=== PATIENT | male | born 1960 | race Caucasian/White ===

== ENCOUNTER 2017-06-14 18:45 | Emergency (ER) | payer OTHER ==
[~2017-06-14] VITALS: Ht 162.6 cm; Wt 86.2 kg
[~2017-06-14 18:45] MED LIST: ALPR1TAB2 PO; LISI-410 PO
[2017-06-14 18:52] VITALS: BP 133/72
--- NOTE | 2017-06-14 19:10 | PCM.EKG ---
[facility] Test Date: 2017-06-14 Test Time: 19:07:32 Pat Name: AIDAN RUSSELL Department: Room: Gender: M Linux Network Engineer: SHARAD : 1960 Requested By: MAXIME KRUSE Order Number: [id number] Reading MD: Measurements Intervals [place] Rate: 77 P: 59 IL: 182 QRS: 65 QRSD: 104 T: 56 QT: 368 QTc: 416 Interpretive Statements Normal sinus rhythm Normal ECG No previous ECG available for comparison Please click the below link to view image of tracing.
--- NOTE | 2017-06-14 19:24 | ER.PDOC ---
General Chief Complaint: General Complaint Stated Complaint: SIDE TINGLING Time seen by MD: 19:22 Source: patient, family Exam Limitations: no limitations History of Present Illness Initial Comments 56 year old white male with hypertension comes in with tingling sensation, left side of the face and body. On and off for the last two days with no history of trauma. Ambulates without difficulty Timing/Duration: other (2 days) Altered Sensation: LUE, LLE, (L) facial Decreased Ability to Stand: walks w/o assistance Usually: orientedx3 Allergies: Coded Allergies: No Known Allergies (Unverified , 05/29/14) Home Meds Reported Medications Alprazolam (XANAX) 1 Mg Tablet, 1 MG PO BID Y for ANXIETY, TABLET 05/29/14 Lisinopril (LISINOPRIL) 20 Mg Tablet, 20 MG PO DAILY, TABLET 05/29/14 Past Medical History Medical History: hypertension Surgical History: no surgical history Social History Smoking: greater than 1 pack/day Alcohol Use: none Drug Use: none Review of Systems Constitutional: denies no symptoms reported, denies see HPI, denies chills, denies diaphoresis, denies fever, denies malaise, denies weakness, denies other Eyes: denies no symptoms reported, denies see HPI, denies blindness, denies blurred vision, denies drainage, denies decreased acuity, denies foreign body sensation, denies inflammation, denies pain, denies photophobia, denies previous injury, denies shadows, denies tunnel vision, denies vision change, denies contact lenses, denies glasses, denies other Ears, Nose, Mouth, Throat: denies no symptoms reported, denies see HPI, denies ear pain, denies ear discharge, denies nose pain, denies nose discharge, denies epistaxis, denies mouth pain, denies mouth swelling, denies loose teeth, denies throat pain, denies throat swelling Respiratory: denies no symptoms reported, denies see HPI, denies cough, denies orthopnea, denies shortness of breath, denies stridor, denies wheezing, denies other Cardiovascular: denies no symptoms reported, denies see HPI, denies chest pain , denies edema, denies palpitations, denies syncope, denies other Gastrointestinal: denies no symptoms reported, denies see HPI, denies abdominal pain, denies constipation, denies diarrhea, denies nausea, denies vomiting, denies other Genitourinary: denies no symptoms reported, denies see HPI, denies discharge, denies dysuria, denies frequency, denies hematuria, denies pain, denies other Musculoskeletal: denies no symptoms reported, denies see HPI, denies back pain , denies gout, denies joint pain, denies joint swelling, muscle pain (chronic left leg pain), denies muscle stiffness, denies neck pain, denies other Skin: denies no symptoms reported, denies see HPI, denies change in color, denies change in hair/nails, denies dryness, denies lesions, denies lumps, denies rash, denies other Psychiatric/Neurological: see HPI Endocrine: denies no symptoms reported, denies see HPI, denies excessive sweating, denies flushing, denies intolerance to cold, denies intolerance to heat, denies increased hunger, denies increased thrist, denies increased urine, denies unexplained weight gain, denies unexplaned weight loss, denies other Hematologic/Lymphatic: denies no symptoms reported, denies see HPI, denies anemia, denies blood clots, denies easy bleeding, denies easy bruising, denies swollen glands, denies other Physical Exam General Appearance: alert, no distress HEENT: no apparent trauma, EOM's intact, no nystagmus, PERRL, ENT inspection nml, pharynx nml, airway intact, oral exam nml Neuro/Psych: oriented x3, nml speech/cognition, nml mood/affect Cranial Nerves: nml as tested Cerebellar: nml as tested Peripheral Exam: motor nml, sensation nml, reflexes nml Neck: supple, non-tender, no carotid bruit Respiratory: no resp distress, breath sounds nml CVS: reg rate & rhythm, heart sounds nml Abdomen: non-tender, no organomegaly, no distention Rectal Exam: Normal Exam, Normal Rectal Tone Skin: color nml, no rash, warm/dry Extremities: non-tender, nml ROM, no pedal edema Results/Orders Results/Orders Laboratory Tests Test 06/14/17 19:38 White Blood Count 12.6 10^3/uL (4.5-11.0) Red Blood Count 4.71 10^6/uL (4.50-5.90) Hemoglobin 13.8 g/dL (13.9-16.3) Hematocrit 44.0 % (37.0-53.0) Mean Corpuscular Volume 93.4 fL (78-100) Mean Corpuscular Hemoglobin 29.3 pg (26-34) Mean Corpuscular Hemoglobin Concent 31.4 g/dL (33-37) Red Cell Distribution Width 14.2 % (11.5-14.5) Platelet Count 287 10^3/uL (150-400) Mean Platelet Volume 9.3 fL (7.8-11.0) Sodium Level 137 mmol/L (132-145) Potassium Level 3.7 mmol/L (3.6-5.2) Chloride Level 101.0 mmol/L (96-109) Carbon Dioxide Level 28.7 mmol/L (20.0-32) Anion Gap 11.0 Blood Urea Nitrogen 18 mg/dL (7-18) Creatinine 0.88 mg/dL (0.59-1.40) Estimated GFR () 109.2 (>/=60) BUN/Creatinine Ratio 20.0 Glucose Level 168 mg/dL (70-110) Calcium Level 8.7 mg/dL (8.4-10.5) Total Bilirubin 0.3 mg/dL (0.2-1.0) Aspartate Amino Transf (AST/SGOT) 16 U/L (0-35) Alanine Aminotransferase (ALT/SGPT) 27 U/L (12-78) Alkaline Phosphatase 95 U/L (50-136) Creatine Kinase MB 1.9 ng/mL (0.5-3.6) Troponin I < 0.02 ng/mL (0.00-0.05) Total Protein 7.7 g/dL (6.4-8.2) Albumin 3.6 g/dL (3.4-5.0) Globulin 4.1 Departure Time of Disposition: 21:06 Disposition: 01 HOME, SELF-CARE Impression: Primary Impression: Leg pain, left Additional Impression: Paresthesia and pain of left extremity Condition: Stable Referrals: NAJMA EDMONDS HATCHERY MANAGER (PCP) PRIMARY CARE PROVIDER Additional Instructions: Follow up PCP RTER prn Naproxen/Robaxin Duration or Time Spent with Pa: 25 MAXIME KRUSE MD Jun 14, 2017 19:24
[2017-06-14 19:43] LABS: HEMOGLOBIN 13.8 g/dL (13.9-16.3); MEAN CELL HGB 29.3 pg (26-34); MEAN CELL HGB CONCENTRATION 31.4 g/dL (33-37); MEAN CORP VOLUME 93.4 fL (78-100); MEAN PLATELET VOLUME 9.3 fL (7.8-11.0); RED CELL DISTRIBUTION WIDTH 14.2 % (11.5-14.5); WHITE BLOOD CELL 12.6 10^3/uL (4.5-11.0)
--- NOTE | 2017-06-14 19:58 | DIREP ---
PROCEDURE:CT HEAD OR BRAIN W/O CONTRAST COMPARISON:None. INDICATIONS:left side numbness TECHNIQUE:CT images were created without intravenous contrast. FINDINGS: VENTRICLES:The ventricles are normal in size and configuration. CEREBRUM:Normal cerebral morphology with appropriate shaw white matter differentiation. CEREBELLUM:Negative. BRAINSTEM:Negative. BASAL CISTERNS:Negative. HEMORRHAGE:No MASS LESION:No ACUTE INFARCT:No SKULL:Normal. SINUSES:Normal. OTHER:None CONCLUSION:Normal examination. Dictated by: Miquel Carlisle Jr. on 06/14/2017 at 07:58 PM
[2017-06-14 20:19] LABS: ALANINE AMINOTRANSFERASE(ML) 27 U/L (12-78); ALKALINE PHOSPHATASE 95 U/L (50-136); ASPARTATE AMINO TRANSFERASE 16 U/L (0-35); CALCIUM 8.7 mg/dL (8.4-10.5); CARBON DIOXIDE 28.7 mmol/L (20.0-32); GLUCOSE 168 mg/dL (70-110)
[2017-06-14 21:12] VITALS: BP 133/72
[2017-06-14 21:22] VITALS: BP 133/72
== END 2017-06-14 21:22 | disposition home or self-care (01) ==
LOC: ER 18:45
DX: R20.2 Paresthesia of skin (principal); M79.605 Pain in left leg; I10 Essential (primary) hypertension; F17.200 Nicotine dependence, unspecified, uncomplicated; Z79.899 Other long term (current) drug therapy
CPT/HCPCS: 36415; 70450; 80053; 82553; 84484; 85027; 93005; 99285

== ENCOUNTER 2018-02-19 19:14 | Emergency (ER) | payer OTHER ==
[~2018-02-19] VITALS: Ht 170.2 cm; Wt 112.5 kg
[2018-02-19 19:33] VITALS: BP 139/87
--- NOTE | 2018-02-19 19:35 | NUR ---
ARRIVAL Pt arrives to ER with the complaint of neck pain. Pt. states that he went to his primary Dr. Reese on the 25 of December because he was having pain in his neck. Pt. 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 Dr. Reese put pt on prednisone but patient stated that he noticed that it was not getting better and that a huge knot had developed on the right side of his neck. Pt. stated that he was suppost to follow up with his PCP but a family memeber got sick and he could not make it. Pt states that he believes that is getting bigger and wants to get it checked out. There is a knot on the right side of his neck the size of a softball, non red, slighly tender. Pt. is sitting on [place] in stable condition at this time
--- NOTE | 2018-02-19 19:41 | ER.PDOC ---
General Chief Complaint: Neck/Upper back Pain Stated Complaint: BUMP ON NECK Time seen by MD: 19:34 Source: patient Exam Limitations: no limitations History of Present Illness Initial Comments Pt developed a "lump" on right trapezius area, on December 23, was given steroids, but, no response Timing/Duration: getting worse Severity: moderate Location: neck, trunk (right posterior tra[ezius area) Identified Cause: no Allergies: Coded Allergies: No Known Allergies (Unverified , 05/29/14) Home Meds Reported Medications Alprazolam (XANAX) 1 Mg Tablet, 1 MG PO BID PRN for ANXIETY, TABLET 05/29/14 Lisinopril (LISINOPRIL) 20 Mg Tablet, 20 MG PO DAILY, TABLET 05/29/14 Past Medical History Medical History: diabetes, hypertension Surgical History: knee Social History Smoking: less than 1 pack/day Alcohol Use: none Drug Use: none Constitutional: no symptoms reported EENTM: no symptoms reported Respiratory: no symptoms reported Cardiovascular: no symptoms reported Gastrointestinal: no symptoms reported Genitourinary: no symptoms reported Musculoskeletal: see HPI Skin: see HPI Psychiatric/Neurological: no symptoms reported Endocrine: no symptoms reported Hematologic/Lymphatic: no symptoms reported Physical Exam General Appearance: alert, no distress Skin: warm/dry, nml color, tender indurated area Location: posterior, neck Character: symmetric With: tenderness, induration Extremities: non-tender, nml ROM, no edema EENT: eyes nml inspection, lips/gums nml, pharynx nml Neck: trachea midline, no swelling Respiratory: no resp. distress, breath sounds nml CVS: reg. rate & rhythm, heart sounds nml Abdomen: non-tender, no organomegaly Rectal: non-tender NEURO/PSYCH: oriented x 3, CN's nml as tested, motor nml, sensation nml, mood/ affect nml Departure Time of Disposition: 21:01 Disposition: 01 HOME, SELF-CARE Impression: Primary Impression: Lipoma of other skin and subcutaneous tissue Condition: Stable Patient Instructions: Lipoma-Brief Referrals: NAJMA EDMONDS STEWARD/STEWARDESS BATH (PCP) PRIMARY CARE PROVIDER Duration or Time Spent with Pa: DUKE LAGUNA MD Feb 19, 2018 19:41
[2018-02-19] MEDS ORDERED: TORADOL IM ONE (20:00)
[2018-02-19] MEDS ORDERED: TORADOL ONE (20:03)
--- NOTE | 2018-02-19 20:50 | DIREP ---
PROCEDURE:CT SOFT TISSUE NECK W/O COMPARISON:None. INDICATIONS:Trapezius mass, pt found lumb back in December of 2017 TECHNIQUE:CT images were created without intravenous contrast material. Sagittal and coronal reconstructions are performed. FINDINGS: NASOPHARYNX:Normal. Fossae of Rosenmuller and torus tubarius are symmetric. ORAL CAVITY:Normal. No visible mass. OROPHARYNX:Normal. Faucial and lingual tonsils are symmetric. HYPOPHARYNX:Normal. No mass or other visible lesion. LARYNX:Normal. The vocal cords are symmetric and without mass. SINUSES:Normal. Limited views show no significant fluid or mucosal thickening. NECK GLANDS:Normal. The parotid, submandibular, and thyroid glands are unremarkable. LYMPH NODES:Normal. No pathological-appearing or enlarged lymph nodes. SKULL BASE:Normal. Foramina are symmetric without bony erosion. VASCULATURE:Normal. Limited views are unremarkable. BONES:Cystic changes in the distal right clavicle adjacent to the acromioclavicular joint. OTHER:Corresponding to the palpable abnormality is a well-defined soft tissue mass lesion measuring 6.90 x 9.37 x 5.26 cm (cc by medial-lateral by AP) along the superficial portion of the right trapezius muscle. This measures-12 Hounsfield units corresponding to fat density. Calcification is identified within the lesion laterally series 5, image 36. CONCLUSION: 1. Soft tissue mass lesion along the superficial portion of the right trapezius muscle most likely representing a lipoma. MRI study with and without contrast is recommended for full evaluation. 2. Cystic changes in the distal right clavicle consistent with developing arthritic change. Dictated by: Peter Berry M.D. on 02/19/2018 at 08:39 PM
[2018-02-19 21:00] VITALS: BP 136/84
[2018-02-19 21:18] VITALS: BP 139/87
== END 2018-02-19 21:14 | disposition home or self-care (01) ==
LOC: ER 19:14
DX: D17.21 Benign lipomatous neoplasm of skin and subcutaneous tissue of right arm (principal); E11.9 Type 2 diabetes mellitus without complications; I10 Essential (primary) hypertension; F17.210 Nicotine dependence, cigarettes, uncomplicated; Z79.899 Other long term (current) drug therapy
CPT/HCPCS: 70490; 96372; 99284; J1885

== ENCOUNTER 2018-12-27 18:36 | Emergency (ER) | payer OTHER ==
[~2018-12-27] VITALS: Ht 170.2 cm; Wt 99.8 kg
[2018-12-27 19:07] VITALS: BP 96/62
[2018-12-27] MEDS ORDERED: NS 1000ML 1,000 ML IV STA ×2 (19:39→21:36)
[2018-12-27] MEDS ORDERED: VANCOMYCIN HCL 1 GM in NS 250ML 250 ML IV STA (19:39)
[2018-12-27] MEDS ORDERED: NS 1000ML 1,000 ML ONE ×2 (19:45→21:53)
[2018-12-27] MEDS ORDERED: TORADOL IV STA (20:26)
--- NOTE | 2018-12-27 20:28 | DIREP ---
PROCEDURE:XRAY FOOT MIN 3 VWS-RT COMPARISON:None. INDICATIONS:diabetic ulcer right 1st toe possible osteomyelitis FINDINGS: BONES:Possible erosion of the distal phalanx of the great toe. JOINTS:Normal. SOFT TISSUES:Great toe soft tissue swelling. OTHER:Small heel spur. Incidental bone ossicle about the base of the 5th metatarsal. CONCLUSION:Possible erosion of the distal phalanx of the right great toe with adjacent soft tissue swelling, may be seen with osteomyelitis. Dictated by: Johnny Grimm M.D. on 12/27/2018 at 08:25 PM
--- NOTE | 2018-12-27 20:30 | ER.PDOC ---
General Chief Complaint: Requesting Medical Care Stated Complaint: GREAT TOE ISSUE Time seen by MD: 20:23 Source: patient Exam Limitations: no limitations History of Present Illness Initial Comments Diabetic with infect big toe for 1 week. No fever or chills. Onset: last week Severity: severe Exacerbated By: walking movement Relieved By: nothing Allergies: Coded Allergies: No Known Allergies (Unverified , 05/29/14) Home Meds Reported Medications Alprazolam (XANAX) 1 Mg Tablet, 1 MG PO BID PRN for ANXIETY, TABLET 05/29/14 Lisinopril (LISINOPRIL) 20 Mg Tablet, 20 MG PO DAILY, TABLET 05/29/14 Past Medical History Medical History: diabetes Surgical History: knee Social History Drug Use: none Review of Systems Constitutional: no symptoms reported Respiratory: no symptoms reported Cardiovascular: no symptoms reported Gastrointestinal: no symptoms reported Musculoskeletal: see HPI All Other Systems: Reviewed and Negative Physical Exam General Appearance: Alert, No Apparent Distress Lower Extremity: tenderness (right big toe with an ulcer beneath. Ulcer has exudate.), swelling (with erythema and redness extending to the distal right foot.) Vascular: no vascular compromise Neuro/Psych: sensory deficit Skin: warmth/erythema Back/Neck: nml inspection EENT: eyes inspection nml Respiratory: no resp distress, breath sounds nml CVS: reg rate & rhythm, heart sounds nml Abdomen: non-tender, no organomegaly, no bruit/mass Results/Orders Results/Orders Orders - TAIWO GARY MD Cbc With Auto Diff (12/27/18 19:39) Comprehensive Metabolic Panel (12/27/18 19:39) Blood Culture (12/27/18 19:39) Wound Culture & Gram Stain (12/27/18 19:39) Vancomycin Hcl (Vancomycin Hcl) (12/27/18 19:39) Xr Foot Rt (12/27/18 19:39) Lactic Acid(Rt) (12/27/18 19:39) 0.9 % Sodium Chloride (Ns 1000ml) (12/27/18 19:39) 0.9 % Sodium Chloride (Ns 1000ml) (12/27/18 19:45) Ketorolac Tromethamine (Toradol) (12/27/18 20:26) 0.9 % Sodium Chloride (Ns 250ml) (12/27/18 20:37) Vancomycin Hcl (Vancomycin Hcl) (12/27/18 20:37) 0.9 % Sodium Chloride (Ns 1000ml) (12/27/18 21:36) Vital Signs Date Time Temp Pulse Resp B/P (MAP) Pulse Ox O2 Delivery O2 Flow Rate FiO2 12/27/18 19:07 97.9 91 20 95 Room Air 12/27/18 19:07 97.9 91 20 96/62 (73) 95 Room Air 12/27/18 19:07 97.9 91 20 Administered Medications Medications (Trade) Dose Ordered Sig/Aleida Route PRN Reason Start Time Stop Time Status Last Admin Dose Admin Ketorolac Tromethamine (Toradol) 30 mg STAT STAT IV 12/27/18 20:26 12/27/18 20:27 UNV 12/27/18 20:53 30 MG Sodium Chloride 1,000 ml @ 1,200 mls/hr Q50M STAT IV 12/27/18 19:39 12/27/18 20:28 DC 12/27/18 20:36 1,200 MLS/HR Vancomycin HCl 1 gm/Sodium Chloride 250 ml @ 175 mls/hr STAT STAT IV 12/27/18 19:39 12/27/18 21:04 DC 12/27/18 20:53 175 MLS/HR Laboratory Tests Test 12/27/18 19:43 12/27/18 20:19 White Blood Count 15.7 10^3/uL (4.5-11.0) H Red Blood Count 4.62 10^6/uL (4.50-5.90) Hemoglobin 14.5 g/dL (13.9-16.3) Hematocrit 43.0 % (37.0-53.0) Mean Corpuscular Volume 93.1 fL (78-100) Mean Corpuscular Hemoglobin 31.4 pg (26-34) Mean Corpuscular Hemoglobin Concent 33.7 g/dL (33-37) Red Cell Distribution Width 13.6 % (11.5-14.5) Platelet Count 320 10^3/uL (150-400) Mean Platelet Volume 10.4 fL (7.8-11.0) Neutrophils (%) (Auto) 73.0 % (41.0-85.0) Lymphocytes (%) (Auto) 15.5 % (24.0-44.0) L Monocytes (%) (Auto) 9.2 % (5.0-12.0) Neutrophils # (Auto) 11.5 10^3/uL (1.8-7.7) H Lymphocytes # (Auto) 2.4 10^3/uL (1.0-4.8) Monocytes # (Auto) 1.4 10^3/uL (0.3-0.8) H Absolute Immature Granulocyte (auto 0.04 10^3 u/L (0-2) Immature Granulocytes % 0.30 % (0.00-0.50) Eosinophils % 1.7 % (0.0-5.0) Basophils % 0.3 % (0.0-0.2) H Basophils # 0.1 10^3/uL (0.0-0.1) Eosinophil Count 0.3 10^3/uL (0.0-0.2) H Sodium Level 140 mmol/L (132-145) Potassium Level 3.9 mmol/L (3.6-5.2) Chloride Level 101.0 mmol/L (96-109) Carbon Dioxide Level 26.3 mmol/L (20.0-32) Anion Gap 16.6 Blood Urea Nitrogen 21 mg/dL (7-18) H Creatinine 1.31 mg/dL (0.59-1.40) Estimated GFR () 68.5 (>/=60) BUN/Creatinine Ratio 16.0 Glucose Level 119 mg/dL (70-110) H Calcium Level 9.0 mg/dL (8.4-10.5) Total Bilirubin 0.6 mg/dL (0.2-1.0) Aspartate Amino Transferase (AST) 24 U/L (0-35) Alanine Aminotransferase (ALT) 33 U/L (12-78) Alkaline Phosphatase 113 U/L (50-136) Total Protein 7.6 g/dL (6.4-8.2) Albumin 3.2 g/dL (3.4-5.0) L Globulin 4.4 Blood Gas Sample Site VBG Car Test N/A Lactic Acid (Blood Gas) 1.9 mmol/1 (0.50-2.0) Progress Progress X rays right foot: Possible erosion of the distal phalanx of the right great toe with adjacent soft tissue swelling, may be seen with osteomyelitis. Discussed with Dr. Wilson who told me to transfer patient to [place] for higher level of care. Departure Time of Disposition: 21:39 Disposition: 02 XFER SHT-TRM HOSP Impression: Primary Impression: Diabetic foot ulcer with osteomyelitis Additional Impression: Sepsis Condition: Stable Referrals: NAJMA EDMONDS BUSINESS DEVELOPMENT COORDINATOR (PCP) PRIMARY CARE PROVIDER Comments Transfer to [facility] ED for Dr. Gillis Duration or Time Spent with Pa: 60 mins Critical Care Note Total Time (mins): 60 Problem Qualifiers Additional Impression: Sepsis Sepsis type: sepsis due to unspecified organism Sepsis acute organ dysfunction status: without acute organ dysfunction Qualified Codes: A41.9 - Sepsis, unspecified organism COOKIE,TAIWO Painter MD Dec 27, 2018 20:29
[2018-12-27 20:32] LABS: BASOPHIL # 0.1 10^3/uL (0.0-0.1); BASOPHIL % 0.3 % (0.0-0.2); EOSINOPHIL # 0.3 10^3/uL (0.0-0.2); EOSINOPHIL % 1.7 % (0.0-5.0); HEMOGLOBIN 14.5 g/dL (13.9-16.3); LYMPHOCYTES # 2.4 10^3/uL (1.0-4.8); LYMPHOCYTES % 15.5 % (24.0-44.0); MEAN CELL HGB 31.4 pg (26-34); MEAN CELL HGB CONCENTRATION 33.7 g/dL (33-37); MEAN CORP VOLUME 93.1 fL (78-100); MEAN PLATELET VOLUME 10.4 fL (7.8-11.0); MONOCYTES # 1.4 10^3/uL (0.3-0.8); MONOCYTES % 9.2 % (5.0-12.0); NEUTROPHIL # 11.5 10^3/uL (1.8-7.7); RED CELL DISTRIBUTION WIDTH 13.6 % (11.5-14.5); WHITE BLOOD CELL 15.7 10^3/uL (4.5-11.0)
[2018-12-27] MEDS ORDERED: VANCOMYCIN HCL 1 GM ONE (20:37)
[2018-12-27] MEDS ORDERED: TORADOL ONE (20:37)
[2018-12-27] MEDS ORDERED: NS 250ML 250 ML IV ONE (20:37)
[2018-12-27 20:55] LABS: CARBON DIOXIDE 26.3 mmol/L (20.0-32)
--- NOTE | 2018-12-27 21:22 | NUR ---
Katie Bueno [facility] on phone with Dr. Wilson
--- NOTE | 2018-12-27 21:22 | NUR ---
ROGERIO Ang on phone with [facility] transfer line
[2018-12-27 21:25] VITALS: BP 99/63
--- NOTE | 2018-12-27 21:27 | NUR ---
[facility] accepted patient for Dr. Gillis
[2018-12-27] MEDS ORDERED: ZOSYN 3.375 GRAM VIAL 3.375 GM in NS 100ML 100 ML IV STA (21:41)
[2018-12-27] MEDS ORDERED: MORPHINE SULFATE ONE (21:53)
[2018-12-27] MEDS ORDERED: ZOSYN 3.375 GRAM VIAL IV ONE (21:53)
[2018-12-27] MEDS ORDERED: NS 100ML 100 ML IV ONE (21:54)
[2018-12-27] MEDS ORDERED: MORPHINE SULFATE IV STA (21:55)
[2018-12-27 22:00] VITALS: BP 101/60
--- NOTE | 2018-12-27 22:27 | NUR ---
Dispatch Dispatch notified of transfer to [facility]
--- NOTE | 2018-12-27 22:45 | NUR ---
Report This nurse gave Sofi at [facility] ER report on patient
[2018-12-27 22:55] VITALS: BP 107/60
--- NOTE | 2018-12-27 22:56 | NUR ---
[facility] at patients bedside
--- NOTE | 2018-12-27 23:10 | NUR ---
DEPARTURE Patient is being transfered to [facility] via [facility]. Patient is alert, oriented X3 at time of discharge. Patient is in stable condtion
[2018-12-27 23:28] VITALS: BP 107/60
== END 2018-12-27 23:10 | disposition short-term general hospital (02) ==
LOC: ER 18:36
DX: A41.9 Sepsis, unspecified organism (principal); E11.621 Type 2 diabetes mellitus with foot ulcer; M86.9 Osteomyelitis, unspecified; Z79.899 Other long term (current) drug therapy
CPT/HCPCS: 36415; 73630; 80053; 83605; 85025; 87040 ×2; 87070; 87077; 87186 ×2; 96365; 96375 ×2; 99291; J1885; J2270; J2543 ×2; J3370 ×2; J7030 ×2; J7050 ×4; 96367; 99285

== ENCOUNTER → 2019-01-08 | Outpatient (CLI) | payer OTHER ==
[2019-01-08 10:26] LABS: HEMOGLOBIN 13.2 g/dL (13.9-16.3); MEAN CELL HGB 31.1 pg (26-34); MEAN CELL HGB CONCENTRATION 32.9 g/dL (33-37); MEAN CORP VOLUME 94.4 fL (78-100); MEAN PLATELET VOLUME 8.9 fL (7.8-11.0); RED CELL DISTRIBUTION WIDTH 14.2 % (11.5-14.5); WHITE BLOOD CELL 15.8 10^3/uL (4.5-11.0)
[2019-01-08 11:04] LABS: CALCIUM 9.3 mg/dL (8.4-10.5); CARBON DIOXIDE 25.5 mmol/L (20.0-32)
== END | disposition home or self-care (01) ==
LOC: NPLAB 09:56
PROVIDERS: ATTEND Internal Medicine Infectious Disease
DX: Z51.81 Encounter for therapeutic drug level monitoring (principal); M86.9 Osteomyelitis, unspecified; B95.2 Enterococcus as the cause of diseases classified elsewhere
CPT/HCPCS: 80053; 85027; 85651; 86140

== ENCOUNTER → 2019-01-15 | Outpatient (CLI) | payer OTHER ==
[2019-01-15 13:09] LABS: HEMOGLOBIN 13.6 g/dL (13.9-16.3); MEAN CELL HGB 30.4 pg (26-34); MEAN CELL HGB CONCENTRATION 32.3 g/dL (33-37); MEAN PLATELET VOLUME 9.6 fL (7.8-11.0); RED CELL DISTRIBUTION WIDTH 13.9 % (11.5-14.5); WHITE BLOOD CELL 10.2 10^3/uL (4.5-11.0)
[2019-01-15 13:32] LABS: CALCIUM 8.9 mg/dL (8.4-10.5); CARBON DIOXIDE 25.1 mmol/L (20.0-32)
== END | disposition home or self-care (01) ==
LOC: NPLAB 12:18
PROVIDERS: ATTEND Internal Medicine Infectious Disease
DX: Z51.81 Encounter for therapeutic drug level monitoring (principal); M86.9 Osteomyelitis, unspecified
CPT/HCPCS: 80053; 80202; 85027; 85651; 86140

== ENCOUNTER 2019-10-07 18:54 | Emergency (ER) | payer OTHER ==
[~2019-10-07] VITALS: Ht 170.2 cm; Wt 93.0 kg
[2019-10-07 19:20] VITALS: BP 131/91
[2019-10-07 19:26] VITALS: BP 131/91
[2019-10-07] MEDS ORDERED: TORADOL IM STA (19:29)
[2019-10-07] MEDS ORDERED: PREDNISONE PO STA (19:29)
--- NOTE | 2019-10-07 19:31 | ER.PDOC ---
General Chief Complaint: Extremities Stated Complaint: LEFT FOOT INJURY Time seen by MD: 19:15 Source: patient Exam Limitations: no limitations History of Present Illness Initial Comments Pt states he has been having problems with his left ankle for the past five months and he has noticed increased swelling and redness and is concerned it may be infected. 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 Onset: other (last 5 months progressively getting worse) Severity: moderate Associated Symptoms: swelling Allergies: Coded Allergies: No Known Allergies (Unverified , 05/29/14) Home Meds Reported Medications Alprazolam (XANAX) 1 Mg Tablet, 1 MG PO BID PRN for ANXIETY, TABLET 05/29/14 Lisinopril (LISINOPRIL) 20 Mg Tablet, 20 MG PO DAILY, TABLET 05/29/14 Past Medical History Medical History: diabetes, other Surgical History: back, knee, shoulder Social History Alcohol Use: none Drug Use: none Review of Systems Constitutional: no symptoms reported EENTM: no symptoms reported Respiratory: no symptoms reported Cardiovascular: no symptoms reported Gastrointestinal: no symptoms reported Genitourinary: no symptoms reported Musculoskeletal: joint pain (left ankle), joint swelling (left ankle) Skin: no symptoms reported Physical Exam General Appearance: Alert Ankle: tenderness (left ankle), swelling (left ankle), erythema (left ankle) Gait: limited by pain Leg/Knee/Thigh: uninjured above ankle Skin: warm/dry Head/ENT: nml inspection Resp/CVS: no resp distress, lungs clear, heart sounds nml, reg. rate & rhythm Results/Orders Results/Orders Orders - ELDON WAN NP Xr Ankle 3v Lt (10/07/19 19:23) Vital Signs Date Time Temp Pulse Resp B/P (MAP) Pulse Ox O2 Delivery O2 Flow Rate FiO2 10/07/19 19:26 98.3 99 18 131/91 (104) 95 Room Air 10/07/19 19:26 98.3 99 18 131/91 (104) 95 10/07/19 19:20 98.3 99 18 10/07/19 19:20 98.3 99 18 95 Departure Referrals: NAJMA EDMONDS CLAIMS CORRESPONDENCE CLERK (PCP) PRIMARY CARE PROVIDER ELDON WAN NP October 07, 2019 19:31
[2019-10-07] MEDS ORDERED: TORADOL ONE (19:32)
[2019-10-07] MEDS ORDERED: PREDNISONE ONE (19:32)
--- NOTE | 2019-10-07 20:03 | DIREP ---
PROCEDURE:XRAY ANKLE MIN 3VWS-LT COMPARISON:None. INDICATIONS:pain FINDINGS: BONES:Normal. JOINTS:Lateral dislocation at the level of the Chopart joint. The navicular, cuboid and distal foot are displaced laterally with respect to the talus and calcaneus. SOFT TISSUES:Extensive soft tissue swelling dorsally. OTHER:No additional findings. CONCLUSION:Lateral dislocation in the hindfoot. Recommend CT scan for full evaluation. Dictated by: Peter Berry M.D. on 10/07/2019 at 07:58 PM
--- NOTE | 2019-10-07 20:19 | DIREP ---
PROCEDURE:XRAY FOOT MIN 3 VWS-LT COMPARISON:None. INDICATIONS:charcots joint FINDINGS: BONES:Normal. JOINTS:There is dislocation between the talus and the navicular. Widening between the cuboid and the calcaneus. Hammertoe deformity in the 2nd toe. SOFT TISSUES:Soft tissue swelling over the dorsum of the proximal foot. OTHER:No additional findings. CONCLUSION:Dislocation between the navicular and talus. Widening between the calcaneus and the cuboid. Dictated by: Peter Berry M.D. on 10/07/2019 at 08:14 PM
--- NOTE | 2019-10-07 20:21 | NUR ---
BOOT APPLIED TO LEFT FOOT AT THIS TIME. PT CAP REFILL <2 SEC. PT'S FOOT HAS NORMAL MOVEMENT AND COLOR AFTER APPLICATION OF BOOT.
== END 2019-10-07 21:00 | disposition home or self-care (01) ==
LOC: ER 18:54
DX: S93.335A Other dislocation of left foot, initial encounter (principal); X58.XXXA Exposure to other specified factors, initial encounter; Y93.89 Activity, other specified; Y92.89 Other specified places as the place of occurrence of the external cause; Y99.8 Other external cause status
CPT/HCPCS: 73610; 73630; 96372; 99284; J1885; J7512